=== PATIENT | male | born 1995 | race African-American/Black ===

== ENCOUNTER 2018-12-13 12:24 | Emergency (ER) | payer OTHER ==
[~2018-12-13] VITALS: Ht 175.3 cm; Wt 73.2 kg
[2018-12-13 12:25] VITALS: BP 128/73
[2018-12-13] MEDS ORDERED: LANTINJ4 SC (12:32)
[2018-12-13] MEDS ORDERED: IBUP-1022 PO (12:32)
--- NOTE | 2018-12-13 13:10 | REP ---
LEFT WRIST, FOUR VIEWS: There is no evidence of an acute fracture, dislocation or intrinsic bone disease. IMPRESSION: No fracture or dislocation. Electronically Signed by Luis Hernandez MD 12/13/2018 02:07 P
== END 2018-12-13 13:31 | disposition home or self-care (01) ==
LOC: M ED 12:24
DX: S63.92XA Sprain of unspecified part of left wrist and hand, initial encounter (principal); W18.39XA Other fall on same level, initial encounter; Y92.018 Other place in single-family (private) house as the place of occurrence of the external cause; E11.9 Type 2 diabetes mellitus without complications; Z79.4 Long term (current) use of insulin